=== PATIENT | female | born 1935 | race Caucasian/White ===

== ENCOUNTER 2016-10-08 05:35 | Inpatient (IN) | payer MEDICARE, OTHER ==
[~2016-10-08] VITALS: Ht 154.9 cm; Wt 71.2 kg
[2016-10-08] MEDS ORDERED: ALBUTEROL/IPRATROPIUM 2.5MG/0.5MG, 3 ML NEB ONE (06:30)
[2016-10-08] MEDS ORDERED: CHOL20003 PO (06:32)
[2016-10-08] MEDS ORDERED: KRIL1CAP5 PO (06:32)
[2016-10-08] MEDS ORDERED: PROBIOTIC (06:32)
[2016-10-08] MEDS ORDERED: METO25TA91 PO (06:32)
[2016-10-08] MEDS ORDERED: APIX2.5T PO (06:32)
[2016-10-08] MEDS ORDERED: LOSA25TA5 PO (06:32)
[2016-10-08] MEDS ORDERED: AMIO200T42 PO (06:32)
[2016-10-08 06:45] LABS: HEMOGLOBIN 12.3 g/dL (11.7-16.4)
[2016-10-08 06:52] LABS: ASPARTATE AMINO TRANSFERASE 26 U/L (15-37); BLOOD UREA NITROGEN 23 mg/dL (7-18)
[2016-10-08 06:56] LABS: IS PT STATUS REG ER OR PRE ER? YES
[2016-10-08] MEDS ORDERED: ALBUTEROL/IPRATROPIUM 2.5MG/0.5MG, 3 ML ONE (06:56)
[2016-10-08] MEDS ORDERED: FUROSEMIDE 20 MG/2 ML IV ONE (07:30)
[2016-10-08] MEDS ORDERED: FUROSEMIDE 20 MG/2 ML ONE (07:31)
[2016-10-08] MEDS ORDERED: ACETAMINOPHEN 325 MG TABLET PO PRN (08:00)
[2016-10-08] MEDS ORDERED: POLYETHYLENE GLYCOL 17 GM PACKET PO PRN (08:00)
[2016-10-08] MEDS ORDERED: NITROGLYCERIN 0.4 MG BOTTLE (25 TABS) SL PRN (08:00)
[2016-10-08] MEDS ORDERED: LABETALOL 5MG/ML, 20ML IV PRN (08:00)
[2016-10-08] MEDS ORDERED: ONDANSETRON 2MG/ML, 2ML IVP PRN (08:00)
[2016-10-08] MEDS ORDERED: MORPHINE SULFATE 4 MG/ML, 1ML IVPush PRN (08:00)
[2016-10-08] MEDS ORDERED: BISACODYL 10 MG SUPP PR PRN (08:00)
[2016-10-08] MEDS ORDERED: HYDROcodone/APAP 5/325 TABLET PO PRN (08:00)
[2016-10-08] MEDS ORDERED: ASPIRIN 325 MG TABLET PO ONE (08:00)
[2016-10-08] MEDS ORDERED: DOCUSATE 100 MG CAPSULE PO PRN (08:00)
[2016-10-08] MEDS ORDERED: ONDANSETRON 2MG/ML, 2ML ONE (08:45)
[2016-10-08] MEDS ORDERED: MORPHINE SULFATE 4 MG/ML, 1ML ONE (08:45)
[2016-10-08] MEDS ORDERED: ASPIRIN 325 MG TABLET EC ONE (08:45)
[2016-10-08 09:30] VITALS: BP 122/77
[2016-10-08] MEDS: CHOLECALCIFEROL 1,000 UNIT TABLET PO SCH ×2 (10:34→21:26)
[2016-10-08] MEDS: LOSARTAN 25MG TABLET PO SCH (10:34)
[2016-10-08] MEDS: APIXABAN 2.5 MG TABLET PO SCH ×2 (10:34→21:26)
[2016-10-08] MEDS: AMIODARONE 200 MG TABLET PO SCH (10:34)
[2016-10-08] MEDS: OMEGA-3/FISH OIL CAPSULE PO SCH (10:34)
[2016-10-08] MEDS: SODIUM CHLORIDE FLUSH 10ML SYR IVF SCH ×2 (10:34→23:02)
[2016-10-08 12:25] LABS: IS PT STATUS REG ER OR PRE ER? NO
[2016-10-08] MEDS ORDERED: OMNIPAQUE 350 MG/ML, 100ML BOTTLE ONE (13:00)
[2016-10-08 13:52] VITALS: BP 135/79
[2016-10-08] MEDS: METOPROLOL SUCCINATE 25 MG TAB.ER.24H PO SCH (14:30)
[2016-10-08] MEDS: FUROSEMIDE 20 MG/2 ML IV SCH (17:12)
[2016-10-08 17:19] LABS: IS PT STATUS REG ER OR PRE ER? NO
[2016-10-08 20:16] VITALS: BP 132/83
[2016-10-08] MEDS ORDERED: DIPHENHYDRAMINE 25 MG CAPSULE ONE (21:23)
[2016-10-08] MEDS: DIPHENHYDRAMINE 25 MG CAPSULE PO PRN (21:27)
[2016-10-08] MEDS ORDERED: DIPHENHYDRAMINE 12.5MG/5ML, 10ML UDC PO PRN (21:30)
[2016-10-09 00:36] VITALS: BP 129/78
[2016-10-09] MEDS: ASPIRIN 325 MG TABLET EC PO SCH (05:31)
[2016-10-09 05:50] LABS: BLOOD UREA NITROGEN 22 mg/dL (7-18)
[2016-10-09 08:30] VITALS: BP 113/68
[2016-10-09] MEDS: METOPROLOL SUCCINATE 25 MG TAB.ER.24H PO SCH (08:48)
[2016-10-09] MEDS: CHOLECALCIFEROL 1,000 UNIT TABLET PO SCH ×2 (08:48→20:47)
[2016-10-09] MEDS: LOSARTAN 25MG TABLET PO SCH (08:48)
[2016-10-09] MEDS: AMIODARONE 200 MG TABLET PO SCH (08:49)
[2016-10-09] MEDS: APIXABAN 2.5 MG TABLET PO SCH ×2 (08:49→20:47)
[2016-10-09] MEDS: OMEGA-3/FISH OIL CAPSULE PO SCH (08:49)
[2016-10-09] MEDS ORDERED: REGADENOSON 0.4 MG/5 ML SYRINGE ONE (09:13)
[2016-10-09] MEDS: SODIUM CHLORIDE FLUSH 10ML SYR IVF SCH ×2 (12:23→20:47)
[2016-10-09] MEDS: FUROSEMIDE 20 MG/2 ML IV SCH (12:24)
[2016-10-09 19:29] VITALS: BP 118/78
[2016-10-09] MEDS: DIPHENHYDRAMINE 25 MG CAPSULE PO PRN (23:43)
[2016-10-10 02:16] VITALS: BP 111/76
[2016-10-10 05:40] LABS: HEMOGLOBIN 11.1 g/dL (11.7-16.4)
[2016-10-10 05:55] LABS: BLOOD UREA NITROGEN 28 mg/dL (7-18)
[2016-10-10] MEDS: ASPIRIN 325 MG TABLET EC PO SCH (06:38)
[2016-10-10 07:14] VITALS: BP 119/82
[2016-10-10] MEDS ORDERED: FUROSEMIDE 20 MG TABLET PO SCH (09:00)
[2016-10-10] MEDS: SODIUM CHLORIDE FLUSH 10ML SYR IVF SCH (09:46)
[2016-10-10] MEDS: METOPROLOL SUCCINATE 25 MG TAB.ER.24H PO SCH (09:47)
[2016-10-10] MEDS: CHOLECALCIFEROL 1,000 UNIT TABLET PO SCH (09:48)
[2016-10-10] MEDS: LOSARTAN 25MG TABLET PO SCH (09:49)
[2016-10-10] MEDS: AMIODARONE 200 MG TABLET PO SCH (09:50)
[2016-10-10] MEDS: APIXABAN 2.5 MG TABLET PO SCH (09:50)
[2016-10-10] MEDS: OMEGA-3/FISH OIL CAPSULE PO SCH (09:51)
[2016-10-10] MEDS ORDERED: POTA10TA90 PO (10:28)
[2016-10-10] MEDS ORDERED: FURO20TA3 PO (10:28)
== END 2016-10-10 12:20 | disposition home or self-care (01) | DRG 291 ==
LOC: ED 07:18 → EDIP 07:44 → 5SO 08:59
PROVIDERS: ADMIT Hospitalist; ATTEND Hospitalist
DX: I13.0 Hypertensive heart and chronic kidney disease with heart failure and stage 1 through stage 4 chronic kidney disease, or unspecified chronic kidney disease (principal); I50.23 Acute on chronic systolic (congestive) heart failure; J44.1 Chronic obstructive pulmonary disease with (acute) exacerbation; E87.1 Hypo-osmolality and hyponatremia; N18.3 Chronic kidney disease, stage 3 (moderate); I48.2 Chronic atrial fibrillation; Z66 Do not resuscitate; R73.9 Hyperglycemia, unspecified; Z90.710 Acquired absence of both cervix and uterus; Z90.49 Acquired absence of other specified parts of digestive tract; Z87.891 Personal history of nicotine dependence; Z82.49 Family history of ischemic heart disease and other diseases of the circulatory system; Z79.01 Long term (current) use of anticoagulants
CPT/HCPCS: 36415; 71020; 71275; 78452; 80048; 80053; 80061; 83880; 84484; 85025; 85379; 85610; 93005; 93017; 93306; 93970; 94640; 96374; 96375; J2405; J2785; J7620; Q9967; A9502; C9898; J1940; J7512; Q0163

== ENCOUNTER → 2020-04-14 | Outpatient (CLI) | payer MEDICARE, OTHER ==
[~2020-04-14] MED LIST: AMIO200T42 PO; APIX2.5T PO; ASPI81TA45 PO; CHOL2000 PO; FURO20TA3 PO; KRIL1CAP5 PO; LIDOCAINE 1%, 10ML ONE; LOSA25TA25 PO; METO25TA91 PO; POTA10TA6 PO; PROBIOTIC
[2020-04-14 16:06] LABS: CELLS COUNTED 73
== END | disposition home or self-care (01) ==
LOC: RAD 13:59
PROVIDERS: ATTEND Registered Nurse
DX: J90 Pleural effusion, not elsewhere classified (principal); J18.9 Pneumonia, unspecified organism; I51.7 Cardiomegaly
CPT/HCPCS: 32555; 71250; 82150; 82945; 83615; 83986; 84157; 87015; 87070; 87075; 87102; 87116; 87205; 87206; 88112; 88305; 89051

== ENCOUNTER 2020-05-03 12:27 | Inpatient (IN) | payer MEDICARE, OTHER ==
[~2020-05-03] VITALS: Ht 154.9 cm; Wt 56.3 kg
[~2020-05-03 12:27] MED LIST changes: -LIDOCAINE 1%, 10ML ONE
[2020-05-03 12:48] LABS: MEAN CORPUSCULAR HEMOGLOBIN 32.7 pg (27.0-34.8); MEAN PLATELET VOLUME 8.3 fL (7.4-10.4); PLATELET COUNT 149 x10^3/uL (130-400); RED BLOOD COUNT 3.76 x10^6/uL (3.82-5.3); RED CELL DISTRIBUTION WIDTH 16.7 % (9.6-15.2)
[2020-05-03 13:00] LABS: ALANINE AMINOTRANSFERASE 31 U/L (12-78); ALBUMIN 3.5 g/dL (3.4-5.0); ANION GAP 12 mmol/L (5-15); CALCIUM 10.8 mg/dL (8.5-10.1); CHLORIDE 102 mmol/L (98-107); CREATININE 1.38 mg/dL (0.55-1.02)
[2020-05-03] MEDS ORDERED: SODIUM CHLORIDE 0.9% 1,000ML IVBOLUS ONE (13:00)
[2020-05-03] MEDS ORDERED: SODIUM CHLORIDE 0.9% 1,000 ML IV ONE (13:00)
[2020-05-03] MEDS ORDERED: SODIUM CHLORIDE FLUSH 10ML SYR IVF ONE (13:00)
[2020-05-03 13:05] LABS: ALKALINE PHOSPHATASE 83 U/L (45-117); BILIRUBIN,TOTAL 2.7 mg/dL (0.2-1.0); TOTAL PROTEIN 6.2 g/dL (6.4-8.2)
[2020-05-03 13:09] LABS: MD YES
[2020-05-03 13:12] LABS: BAND#(MANUAL) 0.04 x10^3/uL; BANDS%(MANUAL) 1 % (0-7); BASOS#(MANUAL) 0.04 x10^3/uL (0-0.1); BASOS% (MANUAL) 1 % (0-1); LYMPH#(MANUAL) 1.19 x10^3/uL (1-3.4); LYMPHS% (MANUAL) 27 % (22-44); MONOS#(MANUAL) 0.18 x10^3/uL (0.3-2.7); MONOS% (MANUAL) 4 % (2-9); SEG#(MANUAL) 2.95 x10^3/uL (1.8-6.8); SEGS% (MANUAL) 67 % (42-75)
[2020-05-03 13:13] LABS: ANISOCYTOSIS 1+; CRENATED 1+; ECHINOCYTES 1+; OVALOCYTES 1+; POLYCHROMASIA 1+; SCHISTOCYTES 1+
[2020-05-03 13:14] LABS: <PLATELET ESTIMATE> DECREASED; <PLT MORPHOLOGY> NORMAL PLT MORPH
--- NOTE | 2020-05-03 13:25 | NUR ---
MULTIPLE ATTEMPTS TO START IV WITH NO SUCCESS. JANNIE BURNETTE TO ATTEMPT US IV.
--- NOTE | 2020-05-03 13:45 | NUR ---
BLOOD GLUCOSE 50. OJ GIVEN.
[2020-05-03 14:06] LABS: MICROSCOPIC INDICATED
[2020-05-03] MEDS ORDERED: DEXTROSE 50%, 50ML SYRINGE ONE (14:22)
[2020-05-03] MEDS ORDERED: DEXTROSE 50%, 50ML SYRINGE IVPush ONE (14:30)
[2020-05-03] MEDS ORDERED: SODIUM CHLORIDE FLUSH 10ML SYR IVF PRN (14:30)
--- NOTE | 2020-05-03 14:39 | NUR ---
25ML D50 GIVEN FOR A BG OF 50. WILL RECHCK. HOSPITALIST AT BEDSIDE.
--- NOTE | 2020-05-03 15:27 | NUR ---
FSBS RECHECKED-61, JUICE PROVIDED. REPORT CALLED TO JIA
[2020-05-03] MEDS ORDERED: ONDANSETRON ODT 4 MG PO PRN (15:30)
[2020-05-03] MEDS ORDERED: ONDANSETRON 2MG/ML, 2ML IVPush PRN (15:30)
[2020-05-03] MEDS ORDERED: ENALAPRILAT 1.25 MG/ML, 2ML IVPush PRN (15:30)
[2020-05-03] MEDS ORDERED: MELATONIN 5 MG TABLET PO PRN (15:30)
[2020-05-03 15:51] LABS: C-REACTIVE PROTEIN, QUANT 0.88 mg/dL (0.02-0.49)
[2020-05-03] MEDS ORDERED: LIDOCAINE 1%, 10ML ONE ×2 (16:01→16:40)
--- NOTE | 2020-05-03 16:13 | NUR ---
Pt to IR then to [id number]. Report to JUAN DAVID VALDERRAMA.
[2020-05-03 17:20] VITALS: BP 133/77
[2020-05-03 20:22] VITALS: BP 93/63
[2020-05-04 01:29] VITALS: BP 114/77
[2020-05-04 05:04] LABS: MEAN CORPUSCULAR HEMOGLOBIN 32.5 pg (27.0-34.8); MEAN CORPUSCULAR HGB CONC 32.9 g/dL (32.4-35.8); MEAN PLATELET VOLUME 8.4 fL (7.4-10.4); PLATELET COUNT 145 x10^3/uL (130-400); RED CELL DISTRIBUTION WIDTH 16.5 % (9.6-15.2)
[2020-05-04 05:09] LABS: ANION GAP 10 mmol/L (5-15); CALCIUM 9.8 mg/dL (8.5-10.1); CHLORIDE 105 mmol/L (98-107); CREATININE 1.27 mg/dL (0.55-1.02)
[2020-05-04 06:00] LABS: MD YES
[2020-05-04 06:03] LABS: ANISOCYTOSIS 1+; ECHINOCYTES 1+; LYMPH#(MANUAL) 0.97 x10^3/uL (1-3.4); LYMPHS% (MANUAL) 19 % (22-44); MONOS#(MANUAL) 0.46 x10^3/uL (0.3-2.7); MONOS% (MANUAL) 9 % (2-9); OVALOCYTES 1+; POLYCHROMASIA 1+; SEG#(MANUAL) 3.67 x10^3/uL (1.8-6.8); SEGS% (MANUAL) 72 % (42-75)
[2020-05-04 06:04] LABS: CRENATED 1+; SCHISTOCYTES 1+; TEAR DROPS 1+
[2020-05-04 06:06] LABS: <PLATELET ESTIMATE> DECREASED; <PLT MORPHOLOGY> NORMAL PLT MORPH
[2020-05-04 07:43] VITALS: BP 102/67
[2020-05-04] MEDS: METOPROLOL SUCCINATE 25 MG TAB.ER.24H PO SCH (08:19)
[2020-05-04 08:26] LABS: ALBUMIN 3.3 g/dL (3.4-5.0); BILIRUBIN, DIRECT 1.5 mg/dL (0.1-0.2)
[2020-05-04 08:28] LABS: BILIRUBIN,INDIRECT 1.1 mg/dL (0.0-2.0); BILIRUBIN,TOTAL 2.6 mg/dL (0.2-1.0); TOTAL PROTEIN 5.9 g/dL (6.4-8.2)
[2020-05-04 08:50] LABS: CELLS COUNTED 92
[2020-05-04] MEDS ORDERED: LOSARTAN 25MG TABLET PO SCH (09:00)
[2020-05-04] MEDS: D5%-0.9% NACL 1,000 ML IV SCH ×2 (09:30→23:18)
[2020-05-04] MEDS: CEFTRIAXONE PMX 1GM/50ML 50 ML IV SCH (09:56)
[2020-05-04 15:30] VITALS: BP 101/67
[2020-05-04] MEDS ORDERED: LIDODERM 5% PATCH TD ONE (19:12)
[2020-05-04] MEDS: LIDODERM 5% PATCH TD SCH (19:28)
[2020-05-04 20:17] VITALS: BP 79/58
[2020-05-04] MEDS ORDERED: TRAZODONE 50MG TABLET PO SCH (21:00)
[2020-05-04] MEDS: MIRTAZAPINE 15 MG TABLET PO SCH (21:07)
[2020-05-04] MEDS ORDERED: SODIUM CHLORIDE 0.9%, 500ML IVBOLUS ONE (22:00)
[2020-05-04] MEDS: ACETAMINOPHEN 325 MG TABLET PO PRN (23:21)
[2020-05-05 01:14] VITALS: BP 111/78
[2020-05-05] MEDS: METOPROLOL SUCCINATE 25 MG TAB.ER.24H PO SCH (04:28)
[2020-05-05 05:23] LABS: MEAN CORPUSCULAR HEMOGLOBIN 32.7 pg (27.0-34.8); MEAN CORPUSCULAR HGB CONC 33.5 g/dL (32.4-35.8); MEAN PLATELET VOLUME 9.2 fL (7.4-10.4); PLATELET COUNT 134 x10^3/uL (130-400); RED BLOOD COUNT 3.51 x10^6/uL (3.82-5.3); RED CELL DISTRIBUTION WIDTH 16.7 % (9.6-15.2)
[2020-05-05] MEDS: OMEPRAZOLE 20 MG CAPSULE.DR PO SCH (06:13)
[2020-05-05 06:18] LABS: MD YES
[2020-05-05 06:20] LABS: BAND#(MANUAL) 0.05 x10^3/uL; BANDS%(MANUAL) 1 % (0-7); BASOS#(MANUAL) 0.05 x10^3/uL (0-0.1); BASOS% (MANUAL) 1 % (0-1); EOS#(MANUAL) 0.05 x10^3/uL (0.0-0.4); EOS% (MANUAL) 1 % (1-7); LYMPH#(MANUAL) 0.46 x10^3/uL (1-3.4); LYMPHS% (MANUAL) 10 % (22-44); MONOS#(MANUAL) 0.78 x10^3/uL (0.3-2.7); MONOS% (MANUAL) 17 % (2-9); SEG#(MANUAL) 3.22 x10^3/uL (1.8-6.8); SEGS% (MANUAL) 70 % (42-75)
[2020-05-05 06:21] LABS: <PLATELET ESTIMATE> DECREASED; <PLT MORPHOLOGY> NORMAL PLT MORPH; ANISOCYTOSIS 1+; CRENATED 1+; ECHINOCYTES 1+; OVALOCYTES 1+; POLYCHROMASIA 1+; SCHISTOCYTES 1+; TEAR DROPS 1+
[2020-05-05 06:56] LABS: ALANINE AMINOTRANSFERASE 128 U/L (12-78); ALBUMIN 3.2 g/dL (3.4-5.0); ANION GAP 9 mmol/L (5-15); CALCIUM 9.6 mg/dL (8.5-10.1); CHLORIDE 105 mmol/L (98-107); CREATININE 1.25 mg/dL (0.55-1.02)
[2020-05-05 07:06] LABS: ALKALINE PHOSPHATASE 91 U/L (45-117); BILIRUBIN,TOTAL 1.9 mg/dL (0.2-1.0); TOTAL PROTEIN 5.7 g/dL (6.4-8.2)
[2020-05-05 08:30] VITALS: BP 112/77
[2020-05-05] MEDS ORDERED: METOPROLOL SUCCINATE 25 MG TAB.ER.24H PO ONE (09:00)
[2020-05-05] MEDS: CEFTRIAXONE PMX 1GM/50ML 50 ML IV SCH (09:22)
[2020-05-05] MEDS: ASPIRIN 81 MG TABLET EC PO SCH (09:22)
[2020-05-05] MEDS: LIDODERM REMOVE PATCH NOTE XX SCH (09:22)
[2020-05-05] MEDS: ACETAMINOPHEN 325 MG TABLET PO PRN (12:10)
[2020-05-05 14:02] VITALS: BP 100/65
[2020-05-05] MEDS: D5%-0.9% NACL 1,000 ML IV SCH (14:15)
[2020-05-05] MEDS ORDERED: ACETAMINOPHEN 325 MG TABLET PO PRN (15:00)
[2020-05-05 19:13] VITALS: BP 95/67
[2020-05-05] MEDS: LIDODERM 5% PATCH TD SCH (19:30)
[2020-05-05] MEDS: MIRTAZAPINE 15 MG TABLET PO SCH (21:00)
[2020-05-05] MEDS ORDERED: ZOLPIDEM 5MG TABLET PO SCH (21:00)
[2020-05-06 00:11] VITALS: BP 105/71
[2020-05-06] MEDS: D5%-0.9% NACL 1,000 ML IV SCH ×2 (02:47→16:58)
[2020-05-06 05:28] LABS: MEAN CORPUSCULAR HEMOGLOBIN 32.9 pg (27.0-34.8); MEAN CORPUSCULAR HGB CONC 33.5 g/dL (32.4-35.8); MEAN PLATELET VOLUME 8.4 fL (7.4-10.4); PLATELET COUNT 105 x10^3/uL (130-400); RED BLOOD COUNT 3.68 x10^6/uL (3.82-5.3); RED CELL DISTRIBUTION WIDTH 16.4 % (9.6-15.2)
[2020-05-06 05:47] LABS: CHLORIDE 108 mmol/L (98-107)
[2020-05-06 05:56] LABS: ALANINE AMINOTRANSFERASE 109 U/L (12-78); ALBUMIN 2.6 g/dL (3.4-5.0); ALKALINE PHOSPHATASE 80 U/L (45-117); ANION GAP 7 mmol/L (5-15); BILIRUBIN,TOTAL 1.2 mg/dL (0.2-1.0); CALCIUM 8.7 mg/dL (8.5-10.1); CREATININE 1.06 mg/dL (0.55-1.02); TOTAL PROTEIN 5.1 g/dL (6.4-8.2)
[2020-05-06 06:23] LABS: MD YES
[2020-05-06 06:25] LABS: BASOS#(MANUAL) 0.04 x10^3/uL (0-0.1); BASOS% (MANUAL) 1 % (0-1); EOS#(MANUAL) 0.16 x10^3/uL (0.0-0.4); EOS% (MANUAL) 4 % (1-7); MONOS#(MANUAL) 0.28 x10^3/uL (0.3-2.7); MONOS% (MANUAL) 7 % (2-9)
[2020-05-06 06:28] LABS: ANISOCYTOSIS 1+; CRENATED 1+; ECHINOCYTES 1+; LYMPHS% (MANUAL) 25 % (22-44); OVALOCYTES 1+; POLYCHROMASIA 1+; SCHISTOCYTES 1+; SEG#(MANUAL) 2.52 x10^3/uL (1.8-6.8); SEGS% (MANUAL) 63 % (42-75)
[2020-05-06 06:29] LABS: <PLATELET ESTIMATE> DECREASED; <PLT MORPHOLOGY> NORMAL PLT MORPH
[2020-05-06 06:59] VITALS: BP 102/70
[2020-05-06] MEDS: LIDODERM REMOVE PATCH NOTE XX SCH (07:30)
[2020-05-06] MEDS ORDERED: QUETIAPINE 25MG TABLET PO PRN (08:00)
[2020-05-06] MEDS ORDERED: PHARMACY INSTRUCTION MC PRN (08:00)
[2020-05-06] MEDS ORDERED: INSTRUCTION SEE COMMENTS XX PRN (08:00)
[2020-05-06] MEDS: CEFTRIAXONE PMX 1GM/50ML 50 ML IV SCH (08:41)
[2020-05-06] MEDS ORDERED: PROPOFOL 50 ML ONE ×2 (08:53→12:20)
[2020-05-06] MEDS: METOPROLOL SUCCINATE 50 MG TAB.ER.24H PO SCH (08:55)
[2020-05-06] MEDS: ASPIRIN 81 MG TABLET EC PO SCH (08:58)
[2020-05-06] MEDS: OMEPRAZOLE 20 MG CAPSULE.DR PO SCH (08:58)
[2020-05-06] MEDS ORDERED: CHLORHEXIDINE 15 ML UDC ONE (09:12)
[2020-05-06] MEDS: SENNA/DOCUSATE TABLET PO PRN (11:36)
[2020-05-06] MEDS: SUCRALFATE 1 GM/10 ML UDC PO SCH ×3 (11:37→21:07)
[2020-05-06] MEDS: POLYETHYLENE GLYCOL 17 GM PACKET PO PRN (11:37)
[2020-05-06 13:40] VITALS: BP 101/70
[2020-05-06 20:10] VITALS: BP 103/71
[2020-05-06] MEDS: LIDODERM 5% PATCH TD SCH (20:30)
[2020-05-06] MEDS ORDERED: MELATONIN 3 MG TABLET PO SCH (21:00)
[2020-05-06] MEDS: MIRTAZAPINE 15 MG TABLET PO SCH (21:07)
[2020-05-07 01:22] VITALS: BP 93/69
[2020-05-07] MEDS: SUCRALFATE 1 GM/10 ML UDC PO SCH ×2 (06:11→10:42)
[2020-05-07] MEDS: OMEPRAZOLE 20 MG CAPSULE.DR PO SCH (06:12)
[2020-05-07] MEDS: D5%-0.9% NACL 1,000 ML IV SCH (06:13)
[2020-05-07 06:58] VITALS: BP 96/67
[2020-05-07] MEDS: CEFTRIAXONE PMX 1GM/50ML 50 ML IV SCH (08:59)
[2020-05-07] MEDS: SENNA/DOCUSATE TABLET PO PRN (09:01)
[2020-05-07] MEDS: ASPIRIN 81 MG TABLET EC PO SCH (09:01)
[2020-05-07] MEDS: POLYETHYLENE GLYCOL 17 GM PACKET PO PRN (09:01)
[2020-05-07] MEDS: METOPROLOL SUCCINATE 50 MG TAB.ER.24H PO SCH (09:05)
[2020-05-07] MEDS ORDERED: OMEP-110 PO (10:19)
[2020-05-07] MEDS ORDERED: CEPH-368 PO (10:19)
[2020-05-07] MEDS ORDERED: POLY17PO5 PO (10:19)
[2020-05-07] MEDS ORDERED: ONDA4TAB13 PO (10:19)
[2020-05-07] MEDS ORDERED: MIRT-34 PO (10:19)
== END 2020-05-07 13:00 | disposition home health service (06) | DRG 391 ==
LOC: ED 12:52 → SUATTDRO 15:11 → EDIP 15:14 → 5SO 17:10 → DCLOUNGE 05-07 12:50
PROVIDERS: ADMIT Hospitalist; ATTEND Family Medicine
PROC: 0W9B3ZZ Drainage of Left Pleural Cavity, Percutaneous Approach (ICD-10-PCS; principal; 2020-05-03)
PROC: BD11ZZZ Fluoroscopy of Esophagus (ICD-10-PCS; 2020-05-04)
PROC: 0DB98ZX Excision of Duodenum, Via Natural or Artificial Opening Endoscopic, Diagnostic (ICD-10-PCS; 2020-05-06)
PROC: 0DB78ZX Excision of Stomach, Pylorus, Via Natural or Artificial Opening Endoscopic, Diagnostic (ICD-10-PCS; 2020-05-06)
PROC: 0DB28ZX Excision of Middle Esophagus, Via Natural or Artificial Opening Endoscopic, Diagnostic (ICD-10-PCS; 2020-05-06)
DX: K29.70 Gastritis, unspecified, without bleeding (principal); J96.21 Acute and chronic respiratory failure with hypoxia; E43 Unspecified severe protein-calorie malnutrition; J90 Pleural effusion, not elsewhere classified; E87.1 Hypo-osmolality and hyponatremia; D68.69 Other thrombophilia; I13.0 Hypertensive heart and chronic kidney disease with heart failure and stage 1 through stage 4 chronic kidney disease, or unspecified chronic kidney disease; I50.42 Chronic combined systolic (congestive) and diastolic (congestive) heart failure; N39.0 Urinary tract infection, site not specified; D69.6 Thrombocytopenia, unspecified; E16.2 Hypoglycemia, unspecified; E87.5 Hyperkalemia; I07.1 Rheumatic tricuspid insufficiency; B96.1 Klebsiella pneumoniae [K. pneumoniae] as the cause of diseases classified elsewhere; I25.10 Atherosclerotic heart disease of native coronary artery without angina pectoris; I48.91 Unspecified atrial fibrillation; K21.9 Gastro-esophageal reflux disease without esophagitis; K22.8 Other specified diseases of esophagus; N18.30 Chronic kidney disease, stage 3 unspecified; R13.14 Dysphagia, pharyngoesophageal phase; Z20.828 Contact with and (suspected) exposure to other viral communicable diseases; I25.2 Old myocardial infarction; Z87.891 Personal history of nicotine dependence; Z90.710 Acquired absence of both cervix and uterus; J44.9 Chronic obstructive pulmonary disease, unspecified; R53.81 Other malaise; R13.19 Other dysphagia
CPT/HCPCS: 32555; 36415; 71045; 74018; 74220; 76700; 80048; 80053; 80074; 80076; 81001; 82378; 82533; 82962; 83615; 83690; 83880; 84157; 84443; 85025; 86140; 86301; 86304; 87070; 87077; 87086; 87186; 87205; 87635; 88112; 88305; 89051; 93005; 96361; 96374; 99285; G0378; J0696; J2704; J7042; J7030; J7040

== ENCOUNTER → 2020-05-13 | Outpatient (CLI) | payer MEDICARE, OTHER ==
[~2020-05-13] MED LIST changes: +CEPH-368 PO; +MIRT-34 PO; +OMEP-110 PO; +OMNIPAQUE 350 MG/ML, 100ML BOTTLE ONE; +ONDA4TAB13 PO; +POLY17PO5 PO
== END | disposition home or self-care (01) ==
LOC: RAD 14:28
PROVIDERS: ATTEND Family Medicine
DX: K76.0 Fatty (change of) liver, not elsewhere classified (principal); J90 Pleural effusion, not elsewhere classified; M85.88 Other specified disorders of bone density and structure, other site; N28.1 Cyst of kidney, acquired; J98.11 Atelectasis; Z90.710 Acquired absence of both cervix and uterus
CPT/HCPCS: 74177; 76830; Q9967

== ENCOUNTER → 2020-06-02 | Outpatient (CLI) | payer MEDICARE, OTHER ==
[~2020-06-02] MED LIST changes: +LIDOCAINE 1%, 10ML ONE; -OMNIPAQUE 350 MG/ML, 100ML BOTTLE ONE
== END | disposition home or self-care (01) ==
LOC: RAD 14:13
PROVIDERS: ATTEND Internal Medicine Cardiovascular Disease
DX: J90 Pleural effusion, not elsewhere classified (principal); I48.91 Unspecified atrial fibrillation; I42.9 Cardiomyopathy, unspecified; I12.9 Hypertensive chronic kidney disease with stage 1 through stage 4 chronic kidney disease, or unspecified chronic kidney disease; N18.31 Chronic kidney disease, stage 3a; E03.9 Hypothyroidism, unspecified; Z79.01 Long term (current) use of anticoagulants; Z79.890 Hormone replacement therapy; Z79.899 Other long term (current) drug therapy
CPT/HCPCS: 32555; 71046; 83615; 84157; 87015; 87070; 87116; 87205; 87206; 88112; 88305; 89051

== ENCOUNTER 2020-07-01 12:56 | Outpatient (CLI) | payer MEDICARE, OTHER ==
[~2020-07-01 12:56] MED LIST changes: -LIDOCAINE 1%, 10ML ONE
== END 2020-07-01 23:59 | disposition home or self-care (01) ==
LOC: RAD 12:56
PROVIDERS: ATTEND Registered Nurse
DX: J90 Pleural effusion, not elsewhere classified (principal); I48.91 Unspecified atrial fibrillation; I42.9 Cardiomyopathy, unspecified; Z79.01 Long term (current) use of anticoagulants; J98.11 Atelectasis
CPT/HCPCS: 71046

== ENCOUNTER 2020-07-03 09:15 | Outpatient (CLI) | payer MEDICARE, OTHER ==
[2020-07-03] MEDS ORDERED: LIDOCAINE 1%, 10ML ONE (09:43)
== END 2020-07-03 23:59 | disposition home or self-care (01) ==
LOC: RAD 09:15
PROVIDERS: ATTEND Internal Medicine Cardiovascular Disease
DX: J90 Pleural effusion, not elsewhere classified (principal); I13.0 Hypertensive heart and chronic kidney disease with heart failure and stage 1 through stage 4 chronic kidney disease, or unspecified chronic kidney disease; N18.31 Chronic kidney disease, stage 3a; I50.9 Heart failure, unspecified; E03.9 Hypothyroidism, unspecified; E78.00 Pure hypercholesterolemia, unspecified; I42.9 Cardiomyopathy, unspecified; K21.9 Gastro-esophageal reflux disease without esophagitis; I48.91 Unspecified atrial fibrillation; Z79.01 Long term (current) use of anticoagulants; Z79.899 Other long term (current) drug therapy; Z79.82 Long term (current) use of aspirin; Z72.89 Other problems related to lifestyle; Z87.891 Personal history of nicotine dependence
CPT/HCPCS: 32555

== ENCOUNTER → 2020-07-15 | Outpatient (CLI) | payer MEDICARE, OTHER | END | disposition home or self-care (01) | LOC: CFH 09:30 | PROVIDERS: ATTEND Internal Medicine Cardiovascular Disease | DX: J90 Pleural effusion, not elsewhere classified (principal); M43.8X6 Other specified deforming dorsopathies, lumbar region; J98.11 Atelectasis; I48.91 Unspecified atrial fibrillation; I42.9 Cardiomyopathy, unspecified; Z79.01 Long term (current) use of anticoagulants | CPT/HCPCS: 71046 ==

== ENCOUNTER 2020-07-18 13:57 | Outpatient (CLI) | payer MEDICARE, OTHER ==
[2020-07-18] MEDS ORDERED: LIDOCAINE 1%, 10ML ONE (14:34)
== END 2020-07-18 23:59 | disposition home or self-care (01) ==
LOC: RAD 13:57
PROVIDERS: ATTEND Internal Medicine Cardiovascular Disease
DX: J90 Pleural effusion, not elsewhere classified (principal); I48.21 Permanent atrial fibrillation; I42.9 Cardiomyopathy, unspecified; E03.9 Hypothyroidism, unspecified; Z79.01 Long term (current) use of anticoagulants; Z79.890 Hormone replacement therapy; Z79.899 Other long term (current) drug therapy
CPT/HCPCS: 32555

== ENCOUNTER → 2020-07-28 | Outpatient (CLI) | payer MEDICARE, OTHER | END | disposition home or self-care (01) | LOC: CFH 13:23 | PROVIDERS: ATTEND Registered Nurse | DX: I08.8 Other rheumatic multiple valve diseases (principal); J90 Pleural effusion, not elsewhere classified; I42.9 Cardiomyopathy, unspecified; D68.69 Other thrombophilia; E03.9 Hypothyroidism, unspecified; E43 Unspecified severe protein-calorie malnutrition; E78.00 Pure hypercholesterolemia, unspecified; E87.1 Hypo-osmolality and hyponatremia; I25.5 Ischemic cardiomyopathy; I12.9 Hypertensive chronic kidney disease with stage 1 through stage 4 chronic kidney disease, or unspecified chronic kidney disease; N18.31 Chronic kidney disease, stage 3a; I48.91 Unspecified atrial fibrillation; I11.0 Hypertensive heart disease with heart failure; I50.22 Chronic systolic (congestive) heart failure; I50.23 Acute on chronic systolic (congestive) heart failure; J96.01 Acute respiratory failure with hypoxia; J96.21 Acute and chronic respiratory failure with hypoxia; R53.81 Other malaise; R63.4 Abnormal weight loss; I27.20 Pulmonary hypertension, unspecified; Z79.01 Long term (current) use of anticoagulants; D64.9 Anemia, unspecified | CPT/HCPCS: 71046; 93306 ==

== ENCOUNTER → 2020-08-01 | Outpatient (CLI) | payer MEDICARE, OTHER ==
[~2020-08-01] MED LIST changes: +LIDOCAINE 1%, 10ML ONE
== END | disposition home or self-care (01) ==
LOC: RAD 12:20
PROVIDERS: ATTEND Internal Medicine Cardiovascular Disease
DX: J90 Pleural effusion, not elsewhere classified (principal); Z79.82 Long term (current) use of aspirin; Z79.899 Other long term (current) drug therapy; Z72.89 Other problems related to lifestyle; Z87.891 Personal history of nicotine dependence; Z82.49 Family history of ischemic heart disease and other diseases of the circulatory system
CPT/HCPCS: 32555; 71045